=== PATIENT | male | born 1965 | race Caucasian/White ===

== ENCOUNTER → 2018-05-17 | Outpatient (CLI) | payer BC ==
--- NOTE | 2018-05-18 08:26 | RAD ---
EXAM: Elbow,Left 3 Views CLINICAL HISTORY: PAIN IN LEFT ELBOW COMPARISON STUDY: None TECHNICAL: 3 x-rays of the left elbow FINDINGS: There is no fracture and no dislocation. There is no elbow joint effusion. An osteophyte the distal triceps tendon measures 5 mm IMPRESSION: No fracture, dislocation or joint effusion. 2. 5 mm distal triceps tendon osteophyte. Electronically signed by: Jayme Friend MD 05/18/2018 8:25 AM [facility]
--- NOTE | 2018-05-18 08:27 | RAD ---
EXAM: Shoulder,Left 2 or More Views CLINICAL HISTORY: PAIN IN LEFT SHOULDER COMPARISON STUDY: None TECHNICAL: 4 x-rays of the left shoulder FINDINGS: There is no fracture and no dislocation. There is no acute osseous abnormality. There are moderate degenerative changes of the acromioclavicular joint. Inferior projecting osteophytes can cause impingement symptoms. The visible chest is negative. IMPRESSION: MODERATE AC JOINT DEGENERATIVE CHANGES, OTHERWISE NEGATIVE SHOULDER. Electronically signed by: Jayme Friend MD 05/18/2018 8:26 AM [facility]
== END ==
LOC: RAD 09:33
PROVIDERS: ATTEND Orthopaedic Surgery
DX: M19.012 Primary osteoarthritis, left shoulder (principal); M25.722 Osteophyte, left elbow; M25.522 Pain in left elbow; M25.512 Pain in left shoulder

== ENCOUNTER → 2018-05-25 | Outpatient (CLI) | payer BC ==
--- NOTE | 2018-05-25 08:51 | RAD ---
EXAM DESCRIPTION: Hip,Right 2 Views CLINICAL HISTORY: 53 years, Male, PAIN IN RIGHT HIP COMPARISON: None TECHNIQUE: AP and frog leg lateral views of the right hip FINDINGS: 2 views of the right hip reveal no fracture or dislocation. No lytic bone lesion. There is no joint space abnormality observed. IMPRESSION: Negative for fracture or dislocation. Electronically signed by: Jim Shaikh MD 05/25/2018 8:50 AM [facility]
--- NOTE | 2018-05-25 08:52 | RAD ---
EXAM DESCRIPTION: Knee,Right Complete x-ray four views CLINICAL HISTORY: 53 years, Male, PAIN IN RIGHT KNEE COMPARISON: None TECHNIQUE: Four views of the right knee FINDINGS: No fracture or dislocation. Bones appear normally mineralized with normal trabecular pattern. Normal appearance of medial and lateral compartments on frontal view. Lateral view shows normal position of the patella. No patellar spurring or enthesopathy. No suprapatellar knee joint effusion. Normal contour of quadriceps and patellar tendons. No abnormal patellar tilt or subluxation on patellar sunrise view. IMPRESSION: Negative for fracture or dislocation. Electronically signed by: Jim Shaikh MD 05/25/2018 8:51 AM [facility]
--- NOTE | 2018-05-25 08:53 | RAD ---
EXAM DESCRIPTION: Pelvis CLINICAL HISTORY: 53 years Male, PAIN COMPARISON: None. FINDINGS: Degenerative spurring is seen at the lumbosacral junction. Normal appearance of the pelvic ring. Normal SI joints. No hip joint dislocation or proximal femoral fracture. No significant spurring at the hip joints. IMPRESSION: Negative for fracture or lytic lesion. Electronically signed by: Jim Shaikh MD 05/25/2018 8:52 AM [facility]
== END ==
LOC: RAD 08:19
PROVIDERS: ATTEND Orthopaedic Surgery
DX: M25.561 Pain in right knee (principal); M25.551 Pain in right hip